=== PATIENT | female | born 1970 | race Caucasian/White ===

== ENCOUNTER 2021-04-08 17:01 | Emergency (ER) | payer SELFPAY ==
[~2021-04-08] VITALS: Ht 162.6 cm; Wt 90.3 kg
== END 2021-04-08 22:45 | disposition home or self-care (01) ==
LOC: ER1 17:01
DX: U07.1 COVID-19 (principal); Z23 Encounter for immunization; I10 Essential (primary) hypertension; E78.5 Hyperlipidemia, unspecified; E03.9 Hypothyroidism, unspecified; Z88.0 Allergy status to penicillin; Z90.710 Acquired absence of both cervix and uterus
CPT/HCPCS: 99283; M0243; U0002